=== PATIENT | female | born 1990 | race Caucasian/White ===

== ENCOUNTER 2023-05-26 10:59 | Emergency (ER) | payer OTHER, SELFPAY ==
--- NOTE | ~2023-05-26 | CT_ITS ---
EXAMINATION: CT HEAD WITHOUT CONTRAST CLINICAL INFORMATION: Headache COMPARISON: None available. TECHNIQUE: Contiguous axial imaging was performed from the skull base to vertex without intravenous administration of contrast. This CT examination was performed using dose optimization techniques as appropriate, variously including the following: *Automated exposure control *Adjustment of mA and/or kV according to patient size (this includes techniques or standardized protocols for targeted exams where dose is matched to indication/reason for exam; i.e. extremities or head) *Use of iterative reconstruction technique DLP: 652 mGy-cm FINDINGS: There is no evidence of an extra-axial collection. There is no evidence of intra-axial or extra-axial hemorrhage. The ventricles and extra-axial CSF spaces are appropriate. Larios-white matter differentiation is normal. No mass, mass effect or infarct. No skull fracture. Inflammatory changes in the sphenoid sinus. CT/CT head/brain wo IV con IMPRESSION: Inflammatory changes in the sphenoid sinus otherwise unremarkable exam.
[2023-05-26 11:03] VITALS: BP 109/62; PULSE 71; RESP 18; TEMP 36.8; O2SAT 99; BMI 34.2
--- NOTE | 2023-05-26 11:06 | ED_ITS ---
HPI - Headache General Chief Complaint: Headache Stated Complaint: Headache Time Seen by Provider: 05/26/23 11:11 Source: patient Mode of arrival: ambulatory Limitations: no limitations History of Present Illness HPI Narrative: This is a 32 years old female with no past medical history presented to emergency department complaining of is followed by headache symptoms started about 09:30 vision is now back to normal she has a frontal headache has residual, she denies any fever any vomiting any neck pain ,she stated that this is not the worse headache ever MD elicited complaint: headache Onset (ago): hour(s) Time: 11:26 Location: frontal Exacerbating factors: none Relieving factors: nothing Context: occurred at rest Associated symptoms: none Related Data Allergies Allergy/AdvReac Type Severity Reaction Status Date / Time Penicillins [PENICILLINS] Allergy Unknown RASH Verified 05/26/23 11:03 Review of Systems 2 Constitutional: Constitutional: Reports no additional constitutional complaints ENT: Reports system reviewed and no additional complaints, except as documented Cardiovascular: Cardiovascular: Reports no additional cardiovascular complaints [facility] Past Medical History [facility] Narrative: none Social History Social History Smoked in Last 30 Days: No Use of substances other than those prescribed or required for medical reasons: Yes Substance Use Type: Marijuana Substance Use Frequency: Daily Advance Directives: No Advance Directives Information Provided: No Physical Exam 2 Vital Signs: Vital Signs: Last Vital Signs Temp 97.9 F 05/26/23 13:59 Pulse 58 05/26/23 13:59 Resp 20 05/26/23 13:59 BP 101/52 L 05/26/23 13:59 Pulse Ox 98 05/26/23 13:59 O2 Del Method Room Air 05/26/23 13:59 BMI result Body Mass Index 34.2 Const: General: cooperative Nutritional Appearance: average body habitus Orientation/consciousness: patient oriented x3 Limitations: no limitations HEENT: Head: Yes normal to inspection Face and sinus: Yes normal facial exam Mouth: Normal oral and palatal mucosa present Throat: Yes posterior oropharynx normal Neck: Neck: Yes normal visual inspection Chest: Chest palpation & inspection: normal inspection of the chest Resp: Effort & Inspection: normal respiratory effort Auscultation: clear to auscultation bilaterally Cardio: Jugular venous distension: no JVD Rate: regular rate Rhythm: r egular rhythm GI: Inspection: Yes normal to inspection Palpation (GI): Soft to palpation, not firm, nontender and no guarding Auscultation: normal bowel sounds Skin: General skin exam: no rashes or lesions noted Lesions: no lesions Rashes: no rashes Neuro: General: patient oriented x3 Cranial nerves: Yes CN's II-XII intact bilaterally Course Course Course Narrative: RME: 32-year-old female with no significant past medical history presenting to the ED complaining bilateral blurry vision to left upper visual field 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 Reports continued GOMEZ at present by visual changes resolved. denies similar sx in the past. denies taking anything for GOMEZ. denies visual loss, weakness Labs ordered Full HPI, ROS and PE to be performed by primary ED provider. Reevaluation(s) Reevaluation #1: Pain free no GOMEZ Time: 13:03 Reevaluation #2: Head CT is negative she is completely asymptomatic this most likely represent migraines, she she had visual symptoms 1st and then headache in the frontal area. At this point I think she can be discharged home will given neurology follow-up Time: 14:11 Medications Administered Discontinued Medications Generic Name Dose Route Start Last Admin Trade Name Imerq PRN Reason Stop Dose Admin Diphenhydramine HCl 25 mg 05/26/23 11:31 05/26/23 11:38 Diphenhydramine Hcl 50 Mg/Ml Vial IVPUSH 05/26/23 11:32 25 mg ONCE ONE Administration Sodium Chloride 1,000 mls @ 999 mls/hr 05/26/23 11:45 05/26/23 13:27 Ns IVCONT 05/26/23 12:45 Infused .Q1H1M RUBI Infusion Metoclopramide HCl 10 mg 05/26/23 11:31 05/26/23 11:39 Metoclopramide Hcl 10 Mg/2 Ml Vial IVPUSH 05/26/23 11:32 10 mg ONCE ONE Administration Medical Decision Making Medical Decision Making [facility] Narrative: Patient presented with a headache, most likely represent migraine headache will obtain imaging labs administer analgesia and reassessed Differential Diagnosis Differential Diagnoses: The differential diagnosis associated with the presentation includes Subdural hematoma/epidural hematoma/migraine headache/tension headache/meningitis Admission/Observation Consideration of admission/observation: Escalation of care including admission/observation considered Lab Data [facility] Lab Attestation statement: I reviewed the patient's lab results. 05/26/23 11:31 05/26/23 11:32 Labs: Lab Results 05/26/23 05/26/23 05/26/23 Range/Units 11:31 11:32 11:53 WBC 8.2 (4.8-10.8) X10*3/uL RBC 4.05 L (4.20-5.50) X10*6/uL Hgb 12.2 (12.0-16.0) g/dl Hct 35.9 L (37.0-47.0) % MCV 88.6 (80.0-98.0) fL MCH 30.1 (27.0-33.0) pg MCHC 34.0 (31.0-35.0) g/dl RDW 12.8 (11.0-16.0) % Plt Count 265 (160-400) X10*3/uL MPV 9.3 L (9.4-12.3) fL Immature Gran % (Auto) 0.4 (0.0-0.4) % Neut % (Auto) 69.6 (45-73) % Lymph % (Auto) 21.8 (20-40) % Sutton % (Auto) 7.1 (2-11) % Eos % (Auto) 0.6 (0-4) % Baso % (Auto) 0.5 (0-2) % Lymph # (Auto) 1.8 (1.2-4.9) X10*3/uL Sutton # (Auto) 0.6 (0.1-1.2) X10*3/uL Eos # (Auto) 0.1 (0.0-0.4) X10*3/uL Baso # (Auto) 0.0 (0.0-0.2) X10*3/uL Abs Immat Gran (auto) 0.03 (0.00-0.03) X10*3/uL Absolute Neuts (auto) 5.7 (2.0-8.3) x10*3/uL Absolute Nucleated RBC 0.000 (0.0-0.012) X10*3/uL Nucleated RBC % (auto) 0.0 (0.0-0.2) /100WBC Sodium 139 (135-145) mmol/L Potassium 3.9 (3.3-5.1) mmol/L Chloride 106 (96-108) mmol/L Carbon Dioxide 24 (22-29) mmol/L Anion Gap 13 (12-20) BUN 12 (9-16) mg/dL Creatinine 0.76 (0.5-1.4) mg/dL Estim Creat Clear Calc 108.3 Estimated GFR > 60 Random Glucose 87 (60-115) mg/dL Calcium 9.1 (8.4-10.2) mg/dL Total Bilirubin 0.3 (0.0-1.0) mg/dL Direct Bilirubin 0.1 (0.0-0.5) mg/dL AST 10 (5-31) U/L ALT 8 (0-31) U/L Alkaline Phosphatase 35 L (39-117) U/L Total Protein 6.9 (6.5-8.0) g/dL Albumin 3.8 (3.5-5.0) g/dL Beta HCG, Quant < 2 mIU/mL Independent Interpretation I performed an independent interpretation of an: CT Scan Interpretation: normal Radiology Impression Discussion of test interpretation with radiology: I have reviewed the radiologist's reading. Radiologist Impression: otocols for targeted exams where dose is matched to indication/reason for exam; i.e. extremities or head) *Use of iterative reconstruction technique DLP: 652 mGy-cm FINDINGS: There is no evidence of an extra-axial collection. There is no evidence of intra-axial or extra-axial hemorrhage. The ventricles and extra-axial CSF spaces are appropriate. Larios-white matter differentiation is normal. No mass, mass effect or infarct. No skull fracture. Inflammatory changes in the sphenoid sinus. CT/CT head/brain wo IV con IMPRESSION: Inflammatory changes in the sphenoid sinus otherwise unremarkable exam. Dictated By: Tammy Cooley MD Signed By: <Electronically signed by Tammy Cooley MD in OV> 05/26/23 [id number] Independent Historian Clinical information obtained from an independent historian. History obtained from or confirmed by: Other (mother at bed side) Discharge Plan Discharge Clinical Impression: Migraine Qualifiers: Migraine type: unspecified Patient Disposition: Home, Self-Care Instructions: Migraine Headache (ED) Additional Instructions: Follow-up with the neurologist return to the emergency room if you worse any concern Referrals: Mundo King MD [Physician] - 3 days Stand Alone Forms: Work/School Release
[2023-05-26] MEDS: diphenhydrAMINE HCL 50 MG/ML VIAL 25 MG IVPUSH (11:38)
[2023-05-26] MEDS: Metoclopramide HCl 10 MG/2 ML VIAL IVPUSH (11:39)
[2023-05-26 11:40] LABS: MANUAL DIFF FLAG NO
[2023-05-26 11:43] LABS: Basophils Percent Auto 0.5 % (0-2); Eosinophils Absolute Auto 0.1 X10*3/uL (0.0-0.4); Eosinophils Percent Auto 0.6 % (0-4); Hematocrit 35.9 % (37.0-47.0); Hemoglobin 12.2 g/dl (12.0-16.0); Imm Gran Abs Auto 0.03 X10*3/uL (0.00-0.03); Imm Gran Pct Auto 0.4 % (0.0-0.4); Lymphocytes Absolute Auto 1.8 X10*3/uL (1.2-4.9); Lymphocytes Percent Auto 21.8 % (20-40); Mean Corpuscular Hemoglobin 30.1 pg (27.0-33.0); Mean Corpuscular Volume 88.6 fL (80.0-98.0); Mean Platelet Volume 9.3 fL (9.4-12.3); Monocytes Absolute Auto 0.6 X10*3/uL (0.1-1.2); Monocytes Percent Auto 7.1 % (2-11); Neutrophils Absolute Auto 5.7 x10*3/uL (2.0-8.3); Neutrophils Percent Auto 69.6 % (45-73); Platelet Count 265 X10*3/uL (160-400); Red Blood Count 4.05 X10*6/uL (4.20-5.50); Red Cell Distribution Width 12.8 % (11.0-16.0); White Blood Count 8.2 X10*3/uL (4.8-10.8)
[2023-05-26] MEDS: 0.9 % Sodium Chloride 1,000 ML 999 ML IVCONT (11:43)
[2023-05-26 11:44] VITALS: BP 111/68; PULSE 75; RESP 15; O2SAT 97
[2023-05-26 12:06] LABS: Alanine Aminotransferase 8 U/L (0-31); Albumin Level 3.8 g/dL (3.5-5.0); Alkaline Phosphatase 35 U/L (39-117); Anion Gap 13 (12-20); Aspartate Amino Transferase 10 U/L (5-31); Bilirubin Direct 0.1 mg/dL (0.0-0.5); Bilirubin Total 0.3 mg/dL (0.0-1.0); Blood Urea Nitrogen 12 mg/dL (9-16); Calcium 9.1 mg/dL (8.4-10.2); Carbon Dioxide 24 mmol/L (22-29); Chloride 106 mmol/L (96-108); Creatinine Clr Calc Pharmacy 108.3; Estimated Glomerular Filt Rate > 60; Glucose Random 87 mg/dL (60-115); Potassium 3.9 mmol/L (3.3-5.1); Sodium 139 mmol/L (135-145); Total Protein 6.9 g/dL (6.5-8.0)
[2023-05-26 12:25] VITALS: BP 98/56; PULSE 44; RESP 20; TEMP 36.9; O2SAT 98
[2023-05-26 12:30] LABS: HCG Quantitative < 2 mIU/mL
--- NOTE | 2023-05-26 12:30 | PC.NURSE ---
MD García notified verbally in person pt has SBP 90s, hr 40s. resting w/o distress or dizziness. reports headache has improved from 10 down to 3
[2023-05-26 13:59] VITALS: BP 101/52; PULSE 58; RESP 20; TEMP 36.6; O2SAT 98
--- NOTE | 2023-05-26 14:00 | PC.NURSE ---
denies pain. resting. talks w/o distress.
[2023-05-26 14:24] VITALS: BP 111/57; PULSE 65; RESP 18; O2SAT 97
--- NOTE | 2023-05-26 14:30 | PC.NURSE ---
aox4. reports headache is improved 0/10 at this time. no diff seeing. HR 60s. calm, cooperative. no distress.
== END 2023-05-26 14:31 | disposition home or self-care (01) ==
PROVIDERS: Physician Assistant; Emergency Provider Emergency Medicine; PCP Internal Medicine
DX: G43.909 Migraine, unspecified, not intractable, without status migrainosus (principal)
CPT/HCPCS: 36415; 70450; 80048; 80076; 84702; 85025; 96361; 96374; 96375; 99284; J1200; J2765